=== PATIENT | male | born 1945 | race Caucasian/White ===

== ENCOUNTER 2018-07-27 17:06 | Emergency (ER) | payer BC ==
[~2018-07-27 17:06] MED LIST: EPINEPHrine SYR 0.1MG/ML* SYRINGE ONE; Sodium Bicarbonate 8.4%* 50 ML SYRINGE ONE
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
[2018-07-27 18:10] VITALS: BP 0/0
== END 2018-07-27 20:16 | disposition expired ==
LOC: EDBD → ED 17:06 → MERGE 17:06 → ED 20:16
DX: S02.91XB Unspecified fracture of skull, initial encounter for open fracture (principal); S82.892A Other fracture of left lower leg, initial encounter for closed fracture; I46.9 Cardiac arrest, cause unspecified; V19.49XA Pedal cycle driver injured in collision with other motor vehicles in traffic accident, initial encounter; Y93.C9 Activity, other involving computer technology and electronic devices; Y93.55 Activity, bike riding; Y92.410 Unspecified street and highway as the place of occurrence of the external cause
CPT/HCPCS: 31500; 99285; J0171